=== PATIENT | male | born 1980 | race Caucasian/White ===

== ENCOUNTER 2017-05-06 11:57 | Emergency (ER) | payer MEDICAID ==
[~2017-05-06] VITALS: Ht 167.6 cm; Wt 79.4 kg
[2017-05-06 12:00] VITALS: BP 127/85
== END 2017-05-06 13:21 | disposition home or self-care (01) ==
LOC: ER 12:02
DX: S29.012A Strain of muscle and tendon of back wall of thorax, initial encounter (principal); X58.XXXA Exposure to other specified factors, initial encounter; Y93.89 Activity, other specified; Y92.89 Other specified places as the place of occurrence of the external cause; Y99.8 Other external cause status
CPT/HCPCS: 99283; A4606; Z7610

== ENCOUNTER 2017-07-28 13:36 | Emergency (ER) | payer BC ==
[~2017-07-28] VITALS: Ht 162.6 cm; Wt 74.8 kg
--- NOTE | 2017-07-28 13:45 | NUR ---
SELF PRESENTS TO ER C/O LEFT KNEE LACERATION. WOUND NOT BLEEDING, ABOUT 5 CM IN LENGTH. A/O X 4. BREATHING EVEN AND UNLABORED. NO SOB. VITALS STABLE. SAFETY AND COMFORT MEASURES IN PLACE. DEBORAH HARMON AT BEDSIDE FOR EVAL.
[2017-07-28] MEDS ORDERED: LIDOCAINE 1% INJ 50 ML MDV IJ ONE (14:23)
--- NOTE | 2017-07-28 14:55 | NUR ---
DEBORAH HARMON AT BEDSIDE FOR SUTURES.
[2017-07-28 15:14] VITALS: BP 128/82
--- NOTE | 2017-07-28 15:15 | NUR ---
Tetanus vaccine recommended to patient by Jamir HARMON and RN. Patient refused vaccine at this time. Patient discharged to home in stable condition. Written and verbal after care instructions given. Patient verbalizes understanding of instruction.
== END 2017-07-28 15:15 | disposition home or self-care (01) ==
LOC: ER 13:43
DX: S81.012A Laceration without foreign body, left knee, initial encounter (principal); X18.XXXA Contact with other hot metals, initial encounter; Y93.89 Activity, other specified; Y92.89 Other specified places as the place of occurrence of the external cause; Y99.0 Civilian activity done for income or pay
CPT/HCPCS: 12002; 73564; 99284; A4606; A6402 ×3; J3490; Z7610

== ENCOUNTER 2017-07-31 10:31 | Emergency (ER) | payer BC ==
[~2017-07-31] VITALS: Ht 167.6 cm; Wt 74.8 kg
[2017-07-31 10:31] VITALS: BP 106/72
== END 2017-07-31 11:11 | disposition home or self-care (01) ==
LOC: ER 10:33
DX: S81.012D Laceration without foreign body, left knee, subsequent encounter (principal); F17.200 Nicotine dependence, unspecified, uncomplicated
CPT/HCPCS: 99281; A4606; Z7610; Z7502

== ENCOUNTER 2017-08-06 12:55 | Emergency (ER) | payer BC ==
[~2017-08-06] VITALS: Ht 162.6 cm; Wt 79.4 kg
[2017-08-06 12:55] VITALS: BP 117/68
== END 2017-08-06 13:27 | disposition home or self-care (01) ==
LOC: ER 12:57
DX: S81.012D Laceration without foreign body, left knee, subsequent encounter (principal); Z48.02 Encounter for removal of sutures; F17.200 Nicotine dependence, unspecified, uncomplicated; X18 Contact with other hot metals
CPT/HCPCS: 99281; A4606; Z7610; Z7502

== ENCOUNTER 2020-09-26 00:59 | Emergency (ER) | payer BC ==
[~2020-09-26] VITALS: Ht 167.6 cm; Wt 81.6 kg
[2020-09-26 01:05] VITALS: BP 147/93
--- NOTE | 2020-09-26 01:05 | NUR ---
PT BIBFAMILY C/O HIGH BP READING AT HOME. PT STATES HE FELT "TINGLING SENSATION ON NECK" AND CHECKED BP AT HOME (150/90) DECIDED TO COME TO ER. DENIES CP, SOB, HEADACHE, DIZZINESS. PT AAOX4. AMBULATORY WITH STEADY GAIT. RESPIRATIONS EVEN AND UNLABORED. SKIN WARM AND INTACT. NO ACUTE DISTRESS NOTED AT THIS TIME. PENDING MD SEGOVIA
--- NOTE | 2020-09-26 01:22 | NUR ---
Patient discharged to home in stable condition. Written and verbal after care instructions given. Patient verbalizes understanding of instruction.Pt ambulatory with a steady gait
== END 2020-09-26 01:23 | disposition home or self-care (01) ==
LOC: ER 01:03
DX: I10 Essential (primary) hypertension (principal)